=== PATIENT | male | born 1960 | race Caucasian/White ===

== ENCOUNTER 2020-05-11 16:28 | Emergency (ER) | payer BC ==
[2020-05-11] MEDS ORDERED: Diphtheria,Pertussis(Acell),Tetanus Vaccine 0.5 ML Syringe IM ONE (16:51)
[2020-05-11] MEDS ORDERED: Bacitracin Oint 1 GM U/D Packet TOP ONE (16:51)
--- NOTE | 2020-05-11 17:21 | EDM.PDOC ---
ED HPI GENERAL MEDICAL PROBLEM - General Chief Complaint: Laceration Stated Complaint: cut fingers left hand Time Seen by Provider: 05/11/20 16:45 Source of Information: Reports: Patient History Limitations: Reports: No Limitations - History of Present Illness INITIAL COMMENTS - FREE TEXT/NARRATIVE: Sukh is a 60-year-old male presenting to the ED for evaluation and treatment of lacerations to his left second and third fingers. Patient was cutting a piece of steel pipe with dye cutter and slipped off the pipe incising the dorsal aspects of those fingers. He has had full range of motion despite deep lacerations to these fingers. He denies any distal numbness or tingling. He did scrub the wounds out at home using Jeanine dish soap. He presents to the ED with multiple bandages wrapped around the wounds covered by duct tape. He is unsure of when his last tetanus shot was given. - Related Data Allergies Allergy/AdvReac Type Severity Reaction Status Date / Time amoxicillin [From Augmentin] Allergy Severe Anaphylactic Verified 05/11/20 16:39 Shock clavulanic acid Allergy Severe Anaphylactic Verified 05/11/20 16:39 [From Augmentin] Shock Home Meds: Home Meds Aspirin 325 mg PO DAILY 05/11/20 [History] Loratadine [Claritin] 10 mg PO DAILY 05/11/20 [History] Montelukast [Singulair] 10 mg PO DAILY 05/11/20 [History] Simvastatin [Zocor] 40 mg PO BEDTIME 05/11/20 [History] Past Medical History HEENT History: Reports: Impaired Vision Cardiovascular History: Reports: High Cholesterol Musculoskeletal History: Reports: Fracture - Past Surgical History Musculoskeletal Surgical History: Reports: ORIF Social & Family History - Tobacco Use Tobacco Use Status *Q: Current Every Day Tobacco User Years of Tobacco use: 40 Packs/Tins Daily: 1.5 - Caffeine Use Caffeine Use: Reports: Coffee - Alcohol Use Days Per Week of Alcohol Use: 7 Number of Drinks Per Day: 3 Total Drinks Per Week: 21 Date of Last Drink: 05/11/20 Time of Last Drink: 21:30 - Recreational Drug Use Recreational Drug Use: No ED ROS GENERAL - Review of Systems Review Of Systems: See Below Constitutional: Reports: No Symptoms HEENT: Reports: No Symptoms Respiratory: Reports: No Symptoms Cardiovascular: Reports: No Symptoms Endocrine: Reports: No Symptoms GI/Abdominal: Reports: No Symptoms : Reports: No Symptoms Musculoskeletal: Reports: Joint Pain. Denies: Joint Swelling Skin: Reports: Other (Lacerations to the dorsal left second and third finger over the PIP joints.) Neurological: Reports: No Symptoms Psychiatric: Reports: No Symptoms Hematologic/Lymphatic: Reports: No Symptoms Immunologic: Reports: No Symptoms ED EXAM, SKIN/RASH Exam: See Below Exam Limited By: No Limitations General Appearance: Alert, No Apparent Distress Extremities: Other (Laceration on the dorsal aspect of the second and third left fingers over the PIP joints. Good distal capillary refill and sensation.) Neurological: Alert, Oriented, Normal Cognition, No Motor/Sensory Deficits Skin: Wound/Incision (Lacerations measuring 3.1 cm on the second dorsal left finger at the PIP and measuring 2.5 cm on the left dorsal third finger at the PIP. Full range of motion of both fingers. Intact distal sensation.) Location, Skin: Upper Extremity, Left ED SKIN PROCEDURES - Laceration/Wound Repair Left Digit - 2nd (Index) Appearance: Subcutaneous, Mildly Contaminated Distal NVT: Neuro & Vascular Intact Anesthetic Type: Local Local Anesthesia - Lidocaine (Xylocaine): 1% Plain Local Anesthetic Volume: 2cc Skin Prep: Other (Wound was scrubbed out with water and soap.) Exploration/Debridement/Repair: Wound Explored, In a Bloodless Field, Explored to Base, No Foreign Material Found Closed with: Sutures Lac/Wound length In cm: 3.1 Suture Size: 4-0 # of Sutures: 5 Suture Type: Nylon Sterile Dressing Applied: Provider Tetanus Status Addressed: Yes Complications: No Left Dorsal Digit - 3rd (Middle) Appearance: Subcutaneous, Mildly Contaminated Distal NVT: Neuro & Vascular Intact Anesthetic Type: Local Local Anesthesia - Lidocaine (Xylocaine): 1% Plain Local Anesthetic Volume: 2cc Skin Prep: Other (Soap and water) Exploration/Debridement/Repair: Wound Explored, In a Bloodless Field, Explored to Base Closed with: Sutures Lac/Wound length In cm: 2.7 Suture Size: 4-0 # of Sutures: 4 Suture Type: Nylon Sterile Dressing Applied: Provider Tetanus Status Addressed: Yes Complications: No Course - Vital Signs Last Recorded V/S: Last Vital Signs Temp 36.6 C 05/11/20 16:45 Pulse 104 H 05/11/20 16:45 Resp 16 05/11/20 16:45 BP 183/89 H 05/11/20 16:45 Pulse Ox 97 05/11/20 16:45 - Orders/Labs/Meds Orders: Active Orders 24 hr Category Date Time Status Vaccines to be Administered [RC] PER UNIT ROUTINE Care 05/11/20 16:51 Active Meds: Medications Discontinued Medications Generic Name Dose Route Start Last Admin Trade Name Sujey PRN Reason Stop Dose Admin Bacitracin 1 dose 05/11/20 16:51 05/11/20 16:54 Bacitracin Oint 1 Gm TOP 05/11/20 16:52 1 dose ONETIME ONE Administration Diphtheria/Tetanus/Acell Pertussis 0.5 ml 05/11/20 16:51 05/11/20 16:59 Boostrix IM 05/11/20 16:52 0.5 ml .ONCE ONE Administration Lidocaine HCl 5 ml 05/11/20 16:51 05/11/20 16:54 Xylocaine-Mpf 1% INJECT 05/11/20 16:52 5 ml ONETIME ONE Administration - Re-Assessments/Exams Free Text/Narrative Re-Assessment/Exam: 05/11/20 17:23 the wounds were injected with 1% lidocaine for local anesthetics. The wounds were then scrubbed out using warm water and soap and explored to the base of the wounds in a bloodless field. On the dorsal left second finger, the wound approaches the tendon but does not involve the tendon or tendon sheath. There is good distal sensation and capillary refill in both the second and third left fingers. I was able to repair the wounds using 4-0 Ethilon requiring a total of 9 sutures between the 2 fingers. Bacitracin was then applied on the wound with the [employer] dressing and tube gauze. I instructed the patient to keep his finger straight with minimal bending. I have a work note excusing the use of the left hand for the next 7 days. The sutures will need to be removed in the next 10 to 14 days which can be done in the clinic. We discussed watching for signs of infection. He should keep the tube gauze dressings in place for the next 24 hours and keep them clean and dry. Departure - Departure Time of Disposition: 17:25 Disposition: Home, Self-Care 01 Clinical Impression: Laceration of left index finger without damage to nail Qualifiers: Encounter type: initial encounter Foreign body presence: without foreign body Qualified Code(s): S61.211A - Laceration without foreign body of left index finger without damage to nail, initial encounter - Discharge Information *PRESCRIPTION DRUG MONITORING PROGRAM REVIEWED*: Not Applicable *COPY OF PRESCRIPTION DRUG MONITORING REPORT IN PATIENT PERLA: Not Applicable Instructions: Laceration Care, Adult, Sutures, [place], or Adhesive Wound Closure, [id number] Referrals: Montez Nolasco Sr, MD [Primary Care Provider] - Care Plan Goals: Please avoid bending these fingers for least the next 3 to 4 days. This will allow the wounds to start to scar and scab. Keep the tube gauze dressing in place for the next 24 hours and keep the wounds clean, dry, and intact. If any sign of infection is noticed including increased redness, swelling, or purulent discharge from the wound, please return to the clinic or the ER for reevaluation. If the wound happens to become dehisced meaning the one of the stitches breaks or falls out, we will also need to see you back. Otherwise, the sutures will need to be removed in the next 10 to 14 days. I have provided you with a work note excusing the use of the left hand for the next 7 days. Once you remove the tube gauze dressings, you may just use regular Band-Aids to keep the wound clean, dry and protected. You also had your tetanus booster today which should be good for 10 years unless you have another significant laceration and then it is good for 5 years. Sepsis Event Note (ED) - Evaluation Sepsis Screening Result: No Definite Risk - Focused Exam Vital Signs: Vital Signs Temp Pulse Resp BP Pulse Ox 05/11/20 16:45 36.6 C 104 H 16 183/89 H 97 - Problem List & Annotations (1) Laceration of left index finger without damage to nail SNOMED Code(s): 58137742848317811 Code(s): S61.211A - LACERATION W/O FB OF L IDX FNGR W/O DAMAGE TO NAIL, INIT Status: Acute Priority: Medium Current Visit: Yes Qualifiers: Encounter type: initial encounter Foreign body presence: without foreign body Qualified Code(s): S61.211A - Laceration without foreign body of left index finger without damage to nail, initial encounter - Problem List Review Problem List Initiated/Reviewed/Updated: Yes - My Orders Last 24 Hours: My Active Orders 05/11/20 16:51 Vaccines to be Administered [RC] PER UNIT ROUTINE - Assessment/Plan Last 24 Hours: My Active Orders 05/11/20 16:51 Vaccines to be Administered [RC] PER UNIT ROUTINE
== END 2020-05-11 17:39 | disposition home or self-care (01) ==
LOC: JP.ED 16:28
DX: S61.211A Laceration without foreign body of left index finger without damage to nail, initial encounter (principal); S61.213A Laceration without foreign body of left middle finger without damage to nail, initial encounter; E78.00 Pure hypercholesterolemia, unspecified; Z23 Encounter for immunization; Z72.0 Tobacco use; Z88.0 Allergy status to penicillin; Z88.1 Allergy status to other antibiotic agents; Z79.899 Other long term (current) drug therapy; W26.8XXA Contact with other sharp object(s), not elsewhere classified, initial encounter
CPT/HCPCS: 12002; 90471; 90715; 99282-25; 99283

== ENCOUNTER 2022-03-07 09:34 | Emergency (ER) | payer BC ==
[2022-03-07 10:38] LABS: TROPONIN I HIGH SENSITIVITY 7.2 pg/mL (<=60.3)
== END 2022-03-07 13:49 | disposition home or self-care (01) ==
LOC: JP.ED 09:34
DX: R07.89 Other chest pain (principal); I25.10 Atherosclerotic heart disease of native coronary artery without angina pectoris; E78.00 Pure hypercholesterolemia, unspecified; Z79.82 Long term (current) use of aspirin; Z79.899 Other long term (current) drug therapy; Z88.0 Allergy status to penicillin; Z87.891 Personal history of nicotine dependence
CPT/HCPCS: 36415; 80048; 84484; 85025; 93005; 99285

== ENCOUNTER 2024-04-04 07:53 | Day surgery (SDC) | payer BC ==
[~2024-04-04 07:53] MED LIST: Dexamethasone 4 MG/ML SDV ONE; Glycopyrrolate 0.2 MG/ML 5 ML MDV ONE; Neostigmine Methylsulfate 10 MG/10 ML MDV ONE; Ondansetron 4 MG/2 ML SDV ONE; Propofol 200 MG/20 ML SDV ONE; Rocuronium 50 MG/5 ML Vial ONE; Succinylcholine 200 MG/10 ML MDV ONE; fentaNYL 250 MCG/5 ML SDV ONE
[2024-04-04 08:31] LABS: HEMATOCRIT 39.8 % (38.4-49.7); HEMOGLOBIN 14.1 g/dL (12.9-16.9); MEAN CORPUSCULAR HEMOGLOBIN 32.8 pg (31.6-35.5); MEAN CORPUSCULAR HGB CONC 35.4 g/dL (31.6-35.5); MEAN CORPUSCULAR VOLUME 92.6 fL (81.4-99.0); RED BLOOD CELL COUNT 4.3 M/uL (4.14-5.76); WHITE BLOOD CELL COUNT,WBC 5.5 K/uL (3.2-11.0)
[2024-04-04 08:51] LABS: ALANINE AMINOTRANSFERASE,ALT 48 U/L (12-78); ALBUMIN 3.8 g/dL (3.4-5.0); ALKALINE PHOSPHATASE 68 U/L (46-116); ASPARTATE AMNIOTRANSFERASE,AST 21 U/L (15-37); BILIRUBIN TOTAL 0.4 mg/dL (0.2-1.0); BLOOD UREA NITROGEN,BUN 14 mg/dL (7-18); CALCIUM 8.7 mg/dL (8.5-10.1); CARBON DIOXIDE,CO2 28 mmol/L (21-32); CHLORIDE,CL 98 mmol/L (100-108); EST CRCL DRUG DOSING (CG) 89.05 mL/min; ESTIMATED GFR 85 mL/min (>60); GLUCOSE RANDOM 116 mg/dL (74-106); POTASSIUM,K 4.5 mmol/L (3.6-5.2); PROTEIN TOTAL,TP 7.7 g/dL (6.4-8.2); SODIUM,NA 134 mmol/L (140-148)
[2024-04-04 08:53] LABS: ANION GAP 12.5 mmol/L (5.0-14.0)
[2024-04-04] MEDS: Lactated Ringers 1,000 ML IV SCH (09:03)
[2024-04-04] MEDS: Albuterol/Ipratropium 3.0-0.5 MG/3 ML Neb Soln NEB ONE (10:27)
[2024-04-04] MEDS: Clindamycin in 0.9 % Sod Chlor 600 MG in Premix Bag 1 BAG IV ONE (10:35)
[2024-04-04] MEDS: metroNIDAZOLE/Normal Saline 500 MG in Premix Bag 1 BAG IV ONE (10:55)
[2024-04-04] MEDS ORDERED: fentaNYL 250 MCG/5 ML SDV ONE (10:59)
[2024-04-04] MEDS ORDERED: Rocuronium 50 MG/5 ML Vial ONE (10:59)
[2024-04-04] MEDS ORDERED: Labetalol 20 MG/4 ML Syringe ONE (11:05)
[2024-04-04] MEDS: Bupivacaine 0.5%/EPINEPHrine 1:200,000 50 ML MDV ONE (11:15)
[2024-04-04] MEDS ORDERED: hydrALAZINE 20 MG/ML SDV ONE (11:33)
[2024-04-04] MEDS ORDERED: Lactated Ringers 1,000 ML ONE (12:16)
[2024-04-04] MEDS ORDERED: Ketorolac 30 MG/ML SDV ONE (12:20)
[2024-04-04] MEDS: Ondansetron 4 MG/2 ML SDV IVPUSH ONE (13:13)
== END 2024-04-04 15:05 | disposition home or self-care (01) ==
LOC: JP.SDS 07:53
PROVIDERS: ATTEND Surgery
DX: K43.6 Other and unspecified ventral hernia with obstruction, without gangrene (principal); J44.9 Chronic obstructive pulmonary disease, unspecified; I10 Essential (primary) hypertension; K21.9 Gastro-esophageal reflux disease without esophagitis; Z88.8 Allergy status to other drugs, medicaments and biological substances
CPT/HCPCS: 00840-QZ; 36415; 80053; 85027; 93005; 93010; 94667; C1781; J0131; J0171; J0330; J0360; J1100; J1596; J1836; J1885; J1920; J2405; J2704; J2710; J2795; J3010; J3490; J7120; J7620